=== PATIENT | female | born 1945 | race Caucasian/White ===

== ENCOUNTER → 2016-09-18 | Outpatient (CLI) | payer MEDICARE, BC ==
--- NOTE | 2016-09-19 23:06 | RADIOLOGY REPORT PS360 ---
DIG MAMM-SCREEN MARK CAD Screening ORDERING PHYSICIAN : Terra Stinson MD PATIENT AGE: 71 years GENDER: Female COMPARISON: Previous mammograms: August 2015, 2013, July 2011, March 2012 INDICATION: Routine screening 71-year-old. No hormones. No new complaints. Previous excisional biopsy right breast.. Cyst aspiration TECHNIQUE: Standard CC and MLO images were obtained. R2 CAD reviewed. FINDINGS: Fairly dense breast bilaterally but no dominant mass nor suspicious calcification. No architectural distortion. Vascular calcifications bilaterally. Mild asymmetry appears recently stable. RIGHT BREAST:No significant new findings LEFT BREAST: No significant new findings .. Small Focal area of density far superior left breast MLO view is similar to studies dating back to 2011. ...... IMPRESSION: ......... No significant new findings. No new areas significant concern . Follow-up in one year BI-RADS CATEGORY: 1_Negative RECOMMENDED FOLLOWUP: 12M 12 MONTH FOLLOW-UP (A letter has been sent to the patient regarding results of the study.)
== END ==
LOC: RAD 09:20
DX: Z12.31 Encounter for screening mammogram for malignant neoplasm of breast (principal)
CPT/HCPCS: G0202